=== PATIENT | female | born 1965 | race Caucasian/White ===

== ENCOUNTER 2017-02-26 17:27 | Emergency (ER) | payer MEDICAID ==
[~2017-02-26] VITALS: Ht 162.6 cm; Wt 76.2 kg
[~2017-02-26 17:27] MED LIST: ALBU6.7H INH; ALBU8.5H5 INH; ALEN10TA6 PO; ALLO300T PO; AMLO5TAB2 PO; ASPI-621 PO; ASPI500T10 PO; ATOR20TA9 PO; ATOR40TA78 PO; BACL-19 PO; CALC-570 PO; CEFU250T PO; CHOL20002 PO; CLIN300C93 PO; DULO60CA7 PO; ESOM40CA PO; FENO160T PO; FENO200C PO; FERR325T35 PO; FLUT10SP NAS; FLUT1DIS5 IH; GABA300C10 PO; GEMF600T PO; GEMF600T3 PO; HYDR-3138 PO; HYDR-3144 PO; HYDR-3341 PO; INSU100C5 SQ-INSULIN; INSU100V13 SC; INSU100V13 SQ-INSULIN; INSU100V14 SQ-INSULIN; IPRA0.2S35 INH; IPRA3AMP NPPB; LEVO200T5 PO; LIPA1CAP45 PO; LOVA10TA PO; METF10002 PO; METH1TAB40 PO; METR500T PO; MONT10TA9 PO; OMEP-110 PO; ONDA8TAB12 PO; PANT40TA3 PO; PRED10TA PO; PRED20TA PO; PRED50TA PO; PRED5TAB PO; PREG300C PO; RANI150T4 PO; TIOT18CA INH; TIZA2CAP PO; VANC1VIA3 PO
[2017-02-26 17:35] VITALS: BP 127/71
[2017-02-26] MEDS ORDERED: KETOROLAC 30 MG/1 ML IM ONE (18:30)
[2017-02-26] MEDS ORDERED: KETOROLAC 30 MG/1 ML ONE (19:00)
== END 2017-02-26 19:14 | disposition home or self-care (01) ==
LOC: ED 18:57
DX: S46.012A Strain of muscle(s) and tendon(s) of the rotator cuff of left shoulder, initial encounter (principal); J44.9 Chronic obstructive pulmonary disease, unspecified; I10 Essential (primary) hypertension; L93.0 Discoid lupus erythematosus; E11.65 Type 2 diabetes mellitus with hyperglycemia; I25.2 Old myocardial infarction; X50.9XXA Other and unspecified overexertion or strenuous movements or postures, initial encounter; Y93.89 Activity, other specified; Y92.89 Other specified places as the place of occurrence of the external cause; Y99.8 Other external cause status
CPT/HCPCS: 73030; 96372; 99284; J1885

== ENCOUNTER → 2017-08-24 | Outpatient (CLI) | payer MEDICAID ==
[~2017-08-24] MED LIST changes: +CLIN300C8 PO; -CLIN300C93 PO; +FENTANYL PF 100 MCG/2ML ONE; +FERR-46 PO; -FERR325T35 PO; -HYDR-3138 PO; -HYDR-3144 PO; +HYDR-3237 PO; +HYDR-3245 PO; +MIDAZOLAM 1 MG/ML, 5ML ONE
== END | disposition home or self-care (01) ==
LOC: RAD 07:28
PROVIDERS: ATTEND Genetic Counselor, MS
DX: M48.061 Spinal stenosis, lumbar region without neurogenic claudication (principal); M51.26 Other intervertebral disc displacement, lumbar region; M71.38 Other bursal cyst, other site
CPT/HCPCS: 72148; 99156; 99157; J2250; J3010

== ENCOUNTER → 2017-09-29 | Outpatient (CLI) | payer MEDICAID ==
[~2017-09-29] MED LIST changes: +FLUMAZENIL 0.1 MG/1 ML, 5ML ONE; +NALOXONE 1 MG/ML, 2ML ONE
== END | disposition home or self-care (01) ==
LOC: RAD 07:01
PROVIDERS: ATTEND Orthopaedic Surgery
DX: M48.062 Spinal stenosis, lumbar region with neurogenic claudication (principal); M51.26 Other intervertebral disc displacement, lumbar region; M71.38 Other bursal cyst, other site; M25.78 Osteophyte, vertebrae; E78.00 Pure hypercholesterolemia, unspecified; F31.9 Bipolar disorder, unspecified; J45.909 Unspecified asthma, uncomplicated; F41.9 Anxiety disorder, unspecified; M81.0 Age-related osteoporosis without current pathological fracture; M19.90 Unspecified osteoarthritis, unspecified site; J43.9 Emphysema, unspecified
CPT/HCPCS: 72148; 99156; J2250; J3010; J2310

== ENCOUNTER 2017-11-23 16:20 | Emergency (ER) | payer MEDICAID ==
[~2017-11-23] VITALS: Ht 162.6 cm; Wt 69.9 kg
[2017-11-23 17:05] VITALS: BP 182/91
== END 2017-11-23 18:27 | disposition home or self-care (01) ==
LOC: ED 18:00
DX: M70.21 Olecranon bursitis, right elbow (principal); M77.9 Enthesopathy, unspecified; I10 Essential (primary) hypertension; E11.9 Type 2 diabetes mellitus without complications
CPT/HCPCS: 99284

== ENCOUNTER → 2017-11-23 | Outpatient (CLI) | payer MEDICAID ==
[~2017-11-23] MED LIST changes: -FENTANYL PF 100 MCG/2ML ONE; -FLUMAZENIL 0.1 MG/1 ML, 5ML ONE; -MIDAZOLAM 1 MG/ML, 5ML ONE; -NALOXONE 1 MG/ML, 2ML ONE
== END ==
LOC: RAD 15:38
PROVIDERS: ATTEND Physician Assistant Surgical
DX: M51.36 Other intervertebral disc degeneration, lumbar region (principal); M96.1 Postlaminectomy syndrome, not elsewhere classified
CPT/HCPCS: 72100

== ENCOUNTER → 2018-01-02 | Outpatient (CLI) | payer MEDICAID | END | disposition home or self-care (01) | LOC: RAD 12:42 | PROVIDERS: ATTEND Physician Assistant Surgical | DX: M47.896 Other spondylosis, lumbar region (principal); M96.1 Postlaminectomy syndrome, not elsewhere classified; Z98.890 Other specified postprocedural states | CPT/HCPCS: 72100 ==

== ENCOUNTER → 2018-01-29 | Outpatient (CLI) | payer MEDICAID ==
[~2018-01-29] MED LIST changes: +CETI10CA PO; +DIPH25CA61 PO; +FERR325T18 PO; +FLUD0.1T PO; +HYDR50TA13 PO; +INSU200I4 SC; +ISOS10TA2 PO; +LEVO125T5 PO; +METH750T2 PO; +OMEG-123 PEG; +PRAM1TAB5 PO; +SUCR1TAB PO; +TIZA4TAB PO; +[UNRECOGNIZED DRUG - OTHER] SC
[2018-01-29 14:31] LABS: ANION GAP 5 mmol/L (5-15); CALCIUM 9.4 mg/dL (8.5-10.1); CHLORIDE 111 mmol/L (98-107)
[2018-01-29 14:34] LABS: ALANINE AMINOTRANSFERASE 15 U/L (12-78); ALKALINE PHOSPHATASE 77 U/L (45-117); BILIRUBIN,TOTAL 0.4 mg/dL (0.2-1.0); CREATININE 0.78 mg/dL (0.55-1.02); TOTAL PROTEIN 7.6 g/dL (6.4-8.2)
== END | disposition home or self-care (01) ==
LOC: STAR 13:00
PROVIDERS: ATTEND Obstetrics & Gynecology Female Pelvic Medicine and Reconstructive Surgery
DX: Z01.818 Encounter for other preprocedural examination (principal); N81.2 Incomplete uterovaginal prolapse; R10.2 Pelvic and perineal pain; N94.10 Unspecified dyspareunia
CPT/HCPCS: 36415; 80053; 93005

== ENCOUNTER 2018-02-05 11:59 | Day surgery (SDC) | payer MEDICAID ==
[~2018-02-05] VITALS: Ht 162.6 cm; Wt 63.6 kg
[~2018-02-05 11:59] MED LIST changes: +BUPIVACAINE/PF 0.25% ONE; +EPINEPHRINE 1 MG/ML, 1ML ONE; +NEOMY/POLYMYXIN B GU IRR. 1 ML IRRIG ONE; +PROPOFOL 10 MG/ML, 20ML ONE; +SUGAMMADEX 200 MG/2 ML IVPush ONE
[2018-02-05 13:18] VITALS: BP 83/39
[2018-02-05] MEDS ORDERED: LACTATED RINGERS 1,000 ML IV SCH (13:50)
[2018-02-05] MEDS ORDERED: FENTANYL PF 100 MCG/2ML ONE ×2 (16:51→19:39)
[2018-02-05] MEDS ORDERED: NEOSTIGMINE 1 MG/ML, 10ML ONE (19:10)
[2018-02-05] MEDS ORDERED: CEFAZOLIN 1,000 MG ONE (19:10)
[2018-02-05] MEDS ORDERED: DEXAMETHASONE 4 MG/ML, 1ML ONE (19:10)
[2018-02-05] MEDS ORDERED: SUCCINYLCHOLINE 20 MG/ML, 10ML ONE (19:10)
[2018-02-05] MEDS ORDERED: GLYCOPYRROLATE 0.2MG/1ML, 5ML ONE (19:10)
[2018-02-05] MEDS ORDERED: PROPOFOL 10 MG/ML, 20ML ONE (19:10)
[2018-02-05] MEDS ORDERED: ONDANSETRON 2MG/ML, 2ML ONE (19:10)
[2018-02-05] MEDS ORDERED: ROCURONIUM 10 MG/ML,10ML ONE (19:10)
[2018-02-05] MEDS ORDERED: ACETAMINOPHEN 325 MG TABLET PO PRN (19:30)
[2018-02-05] MEDS ORDERED: PROMETHAZINE 12.5 MG SUPP PR PRN (19:30)
[2018-02-05] MEDS ORDERED: MIDAZOLAM 1 MG/ML, 2ML IV PRN (19:30)
[2018-02-05] MEDS ORDERED: ONDANSETRON 2MG/ML, 2ML IVPush PRN (19:30)
[2018-02-05] MEDS ORDERED: PROMETHAZINE 25 MG/ML, 1ML IV PRN (19:30)
[2018-02-05] MEDS ORDERED: DIAZEPAM 5 MG/ML, 2ML IVPush PRN (19:30)
[2018-02-05] MEDS ORDERED: ALBUTEROL SULFATE 2.5 MG/3 ML NPPB PRN (19:30)
[2018-02-05] MEDS ORDERED: LORazepam 2 MG/ML, 1ML IVPush PRN (19:30)
[2018-02-05] MEDS ORDERED: hydrALAzine 20 MG/ML, 1ML IV PRN (19:30)
[2018-02-05] MEDS ORDERED: OXYcodone 5 MG/5 ML ORAL.SOL UDC PO PRN (19:30)
[2018-02-05] MEDS ORDERED: MEPERIDINE/PF 25MG/0.5ML IVPush PRN (19:30)
[2018-02-05] MEDS ORDERED: METOCLOPRAMIDE 5 MG/ML, 2ML IV PRN (19:30)
[2018-02-05] MEDS ORDERED: LABETALOL 5MG/ML, 20ML IV PRN (19:30)
[2018-02-05] MEDS ORDERED: ALBUTEROL/IPRATROPIUM 2.5MG/0.5MG, 3 ML NPPB PRN (19:30)
[2018-02-05] MEDS ORDERED: hydrALAzine 20 MG/ML, 1ML ONE (19:39)
[2018-02-05] MEDS: FENTANYL PF 100 MCG/2ML IV PRN ×2 (19:40→20:03)
[2018-02-05] MEDS ORDERED: OXYcodone 5 MG/5 ML ORAL.SOL UDC ONE (19:40)
[2018-02-05] MEDS ORDERED: OXYcodone/APAP 5/325MG TABLET PO PRN (21:30)
[2018-02-05] MEDS ORDERED: HYDROcodone/APAP 5/325 TABLET PO PRN (21:30)
[2018-02-05] MEDS ORDERED: KETOROLAC 30 MG/1 ML IV PRN (21:30)
[2018-02-05] MEDS ORDERED: HYDROmorphone 1 MG/ML, 1ML IV PRN (21:30)
[2018-02-05] MEDS ORDERED: IBUPROFEN 600 MG TABLET PO PRN (21:30)
[2018-02-05] MEDS ORDERED: ONDANSETRON 4 MG TABLET PO PRN (21:30)
== END 2018-02-05 23:31 | disposition home or self-care (01) ==
LOC: OUT 11:59 → 4NOR 20:50 → OUT 23:31
PROVIDERS: ATTEND Obstetrics & Gynecology Female Pelvic Medicine and Reconstructive Surgery
DX: N81.4 Uterovaginal prolapse, unspecified (principal); N80.3 Endometriosis of pelvic peritoneum; N81.89 Other female genital prolapse; N39.46 Mixed incontinence; N94.10 Unspecified dyspareunia; J44.9 Chronic obstructive pulmonary disease, unspecified; E03.9 Hypothyroidism, unspecified; E11.40 Type 2 diabetes mellitus with diabetic neuropathy, unspecified; Z86.14 Personal history of Methicillin resistant Staphylococcus aureus infection; Z87.39 Personal history of other diseases of the musculoskeletal system and connective tissue; Z98.890 Other specified postprocedural states; Z88.6 Allergy status to analgesic agent; Z88.1 Allergy status to other antibiotic agents; Z88.8 Allergy status to other drugs, medicaments and biological substances
CPT/HCPCS: 57265; 57282; 57288; 58552; 82962; 88307; 88311; C1771; J0171; J0360; J0690; J1100; J1885; J2405; J2704; J2710; J3010; J3490; J0330

== ENCOUNTER → 2018-04-03 | Outpatient (CLI) | payer MEDICAID ==
[~2018-04-03] MED LIST changes: -BUPIVACAINE/PF 0.25% ONE; -EPINEPHRINE 1 MG/ML, 1ML ONE; -NEOMY/POLYMYXIN B GU IRR. 1 ML IRRIG ONE; -PROPOFOL 10 MG/ML, 20ML ONE; -SUGAMMADEX 200 MG/2 ML IVPush ONE
== END | disposition home or self-care (01) ==
LOC: RAD 09:00
PROVIDERS: ATTEND Physician Assistant Surgical
DX: M51.36 Other intervertebral disc degeneration, lumbar region (principal); M96.1 Postlaminectomy syndrome, not elsewhere classified
CPT/HCPCS: 72100

== ENCOUNTER 2018-10-28 17:32 | Emergency (ER) | payer MEDICAID ==
[~2018-10-28] VITALS: Ht 162.6 cm; Wt 70.0 kg
[~2018-10-28 17:32] MED LIST changes: +AMLO-150 PO; -AMLO5TAB2 PO; -ASPI-621 PO; +ASPI81TA45 PO; +ATOR20TA37 PO; -ATOR20TA9 PO; -CHOL20002 PO; +CHOL200085 PO; -GEMF600T3 PO; +GEMF600T4 PO; -IPRA3AMP NPPB; +IPRA3AMP30 NPPB
[2018-10-28 17:37] VITALS: BP 148/80
[2018-10-28] MEDS ORDERED: HYDROcodone/APAP 5/325 TABLET PO ONE (18:00)
[2018-10-28] MEDS ORDERED: HYDROcodone/APAP 5/325 TABLET ONE (18:07)
== END 2018-10-28 19:03 | disposition home or self-care (01) ==
LOC: ED 18:57 → MERGE 18:57 → ED 19:03
DX: S90.31XA Contusion of right foot, initial encounter (principal); J44.9 Chronic obstructive pulmonary disease, unspecified; E11.9 Type 2 diabetes mellitus without complications; Z88.0 Allergy status to penicillin; Z88.1 Allergy status to other antibiotic agents; Z88.2 Allergy status to sulfonamides; Z91.040 Latex allergy status; X58.XXXA Exposure to other specified factors, initial encounter; Y93.89 Activity, other specified; Y92.89 Other specified places as the place of occurrence of the external cause; Y99.8 Other external cause status
CPT/HCPCS: 99283

== ENCOUNTER 2019-11-11 22:38 | Inpatient (IN) | payer MEDICAID ==
[~2019-11-11] VITALS: Ht 162.6 cm; Wt 70.1 kg
[~2019-11-11 22:38] MED LIST changes: -ALBU6.7H INH; +ALBU6.7H8 INH; -ALEN10TA6 PO; +ALEN10TA7 PO; +CHOL20002 PO; -CHOL200085 PO; -GEMF600T4 PO; +GEMF600T8 PO; -TIZA4TAB PO; +TIZA4TAB2 PO
--- NOTE | 2019-11-11 22:45 | NUR ---
BLOOD GLUCOSE IN TRAIGE: 364
[2019-11-11] MEDS ORDERED: SODIUM CHLORIDE FLUSH 10ML SYR IVF ONE (23:00)
[2019-11-11] MEDS ORDERED: SODIUM CHLORIDE 0.9% 1,000ML IVBOLUS ONE (23:00)
[2019-11-11 23:06] LABS: BASOPHILS # (AUTO) 0.05 x10^3/uL (0-0.1); BASOPHILS % (AUTO) 0 % (0-1); EOSINOPHILS # (AUTO) 0.42 x10^3/uL (0-0.4); EOSINOPHILS % (AUTO) 3 % (1-7); LYMPHOCYTES # (AUTO) 2.19 x10^3/uL (1-3.4); LYMPHOCYTES % (AUTO) 15 % (22-44); MD NO; MEAN CORPUSCULAR HEMOGLOBIN 28.4 pg (27.0-34.8); MEAN CORPUSCULAR VOLUME 83.6 fL (80-100); MEAN PLATELET VOLUME 9.4 fL (7.4-10.4); MONOCYTES # (AUTO) 0.75 x10^3/uL (0.2-0.8); MONOCYTES % (AUTO) 5 % (2-9); NEUTROPHILS # (AUTO) 11.16 x10^3/uL (1.8-6.8); NEUTROPHILS % (AUTO) 77 % (42-75); PLATELET COUNT 386 x10^3/uL (130-400); RED BLOOD COUNT 4.23 x10^6/uL (3.82-5.3); RED CELL DISTRIBUTION WIDTH 13.2 % (9.6-15.2)
[2019-11-11 23:19] LABS: ALANINE AMINOTRANSFERASE 34 U/L (12-78); ALBUMIN 3.6 g/dL (3.4-5.0); ANION GAP 9 mmol/L (5-15); CALCIUM 8.7 mg/dL (8.5-10.1); CHLORIDE 108 mmol/L (98-107); CREATININE 1.17 mg/dL (0.55-1.02)
[2019-11-11 23:22] LABS: ALKALINE PHOSPHATASE 90 U/L (45-117); BILIRUBIN,TOTAL 0.3 mg/dL (0.2-1.0); TOTAL PROTEIN 6.8 g/dL (6.4-8.2); TROPONIN I < 0.015 ng/mL (0.000-0.045)
--- NOTE | 2019-11-12 00:59 | NUR ---
BEDSIDE REPORT RECEIVED FROM ARIN SOW. PT RESTING QUIETLY, C/O LOWER ABD PAIN 710 X 2 DAYS. IV 1L INFUSED, VS NOTED. PROVIDER NOTIFIED.
--- NOTE | 2019-11-12 02:30 | NUR ---
DR ANDRADE IN TO EVALUATE FOR ADMIT. PT CONTINUES TO HAVE SMALL AMT OF CONTINUOUS LIQUID STOOL OUTPUT. PT CLEANED; DR ANDRADE NOTIFIED AND FECAL MANAGEMENT ORDERED. PT OTHERWISE CONTINUES RESTING QUIETLY.
[2019-11-12] MEDS ORDERED: SODIUM CHLORIDE 0.9% 1,000ML IVBOLUS ONE (03:00)
[2019-11-12 03:28] LABS: FREE T4 (FREE THYROXINE) 1.13 ng/dL (0.76-1.46)
[2019-11-12] MEDS ORDERED: ONDANSETRON 2MG/ML, 2ML IVPush PRN (03:30)
[2019-11-12] MEDS ORDERED: ALBUTEROL/IPRATROPIUM 2.5MG/0.5MG, 3 ML HHN PRN (03:30)
--- NOTE | 2019-11-12 04:01 | NUR ---
2ND LITER NS INFUSED, VS UNCHANGED NOTED. PT SLEEPING AT THIS TIME. LABS REVIEWED. WILL CONTINUE TO MONITOR.
[2019-11-12] MEDS: SODIUM CHLORIDE 0.9% 1,000 ML IV SCH ×3 (06:25→20:57)
[2019-11-12] MEDS ORDERED: GABAPENTIN 300 MG CAPSULE ONE (06:28)
[2019-11-12 06:29] LABS: TROPONIN I < 0.015 ng/mL (0.000-0.045)
[2019-11-12] MEDS: GABAPENTIN 300 MG CAPSULE PO SCH ×4 (06:34→20:54)
[2019-11-12] MEDS: LEVOTHYROXINE 125 MCG TABLET PO SCH (06:34)
[2019-11-12] MEDS: INSULIN LISPRO 100 UNITS/ML, PEN SQ-INSULIN SCH ×4 (07:00→20:55)
--- NOTE | 2019-11-12 07:00 | NUR ---
RECEIVED REPORT FROM ERNESTO. PT LAYING ON GURNEY SLEEPING COMFORTABLY, RESPONDS APPROP TO STAFF, NAD, COMFORT MEASURES PROVIDED, CALL LIGHT WITHIN REACH, ISO PREC REMAIN IN PLACE- AWAITING SUFFICIENT AMT OF STOOL FOR SAMPLE.
[2019-11-12 07:09] LABS: MICROSCOPIC INDICATED
[2019-11-12 07:10] LABS: CULTURE INDICATED? YES
--- NOTE | 2019-11-12 07:54 | NUR ---
Pt to be admitted to [facility], room 424. Report called to Jasen.
[2019-11-12] MEDS: ALLOPURINOL 300 MG TABLET PO SCH (09:30)
[2019-11-12] MEDS: FERROUS SULFATE 325 MG TABLET PO SCH (09:30)
[2019-11-12] MEDS ORDERED: IPRATROPIUM 0.5 MG/2.5 ML INHA NEB PRN (10:00)
[2019-11-12] MEDS: PROTEASE PO SCH ×3 (11:00→21:00)
[2019-11-12] MEDS: AMYLASE PO SCH ×3 (11:00→21:00)
[2019-11-12] MEDS: LIPASE PO SCH ×3 (11:00→21:00)
[2019-11-12] MEDS: [UNRECOGNIZED DRUG - OTHER] PO SCH ×3 (11:00→21:00)
[2019-11-12 11:57] VITALS: BP 135/52
[2019-11-12] MEDS: FLUDROCORTISONE 0.1 MG TABLET PO SCH ×2 (12:01→20:54)
[2019-11-12] MEDS: DULOXETINE 30 MG CAPSULE.DR PO SCH (12:01)
[2019-11-12 14:31] VITALS: BP 161/66
[2019-11-12 18:42] LABS: CLOSTRIDIUM DIFFICILE ANTIGEN NEGATIVE; CLOSTRIDIUM DIFFICILE TOXIN NEGATIVE (Negative)
[2019-11-12] MEDS ORDERED: IMMUNE GLOBULIN SQ ONE (20:00)
[2019-11-12] MEDS: FENOFIBRATE 145 MG TABLET PO SCH (20:54)
[2019-11-12] MEDS: MONTELUKAST 10 MG TABLET PO SCH (20:54)
[2019-11-12] MEDS: ATORVASTATIN 40 MG TABLET PO SCH (20:54)
[2019-11-12 21:24] VITALS: BP 165/80
[2019-11-12] MEDS: ACETAMINOPHEN 325 MG TABLET PO PRN (21:55)
[2019-11-13 02:00] VITALS: BP 141/73
[2019-11-13] MEDS: SODIUM CHLORIDE 0.9% 1,000 ML IV SCH ×2 (04:45→10:24)
[2019-11-13] MEDS: LEVOTHYROXINE 125 MCG TABLET PO SCH (05:05)
[2019-11-13] MEDS: GABAPENTIN 300 MG CAPSULE PO SCH ×4 (05:05→20:31)
[2019-11-13] MEDS: ACETAMINOPHEN 325 MG TABLET PO PRN (05:06)
[2019-11-13] MEDS: PROTEASE PO SCH ×4 (07:00→20:30)
[2019-11-13] MEDS: [UNRECOGNIZED DRUG - OTHER] PO SCH ×4 (07:00→20:30)
[2019-11-13] MEDS: AMYLASE PO SCH ×4 (07:00→20:30)
[2019-11-13] MEDS: LIPASE PO SCH ×4 (07:00→20:30)
[2019-11-13 07:12] LABS: BASOPHILS # (AUTO) 0.06 x10^3/uL (0-0.1); BASOPHILS % (AUTO) 1 % (0-1); EOSINOPHILS # (AUTO) 0.34 x10^3/uL (0-0.4); EOSINOPHILS % (AUTO) 4 % (1-7); LYMPHOCYTES % (AUTO) 20 % (22-44); MD NO; MEAN CORPUSCULAR HEMOGLOBIN 28.5 pg (27.0-34.8); MEAN CORPUSCULAR HGB CONC 33.5 g/dL (32.4-35.8); MEAN CORPUSCULAR VOLUME 85.1 fL (80-100); MEAN PLATELET VOLUME 9.5 fL (7.4-10.4); MONOCYTES # (AUTO) 0.46 x10^3/uL (0.2-0.8); MONOCYTES % (AUTO) 5 % (2-9); NEUTROPHILS # (AUTO) 6.05 x10^3/uL (1.8-6.8); NEUTROPHILS % (AUTO) 70 % (42-75); PLATELET COUNT 368 x10^3/uL (130-400); RED BLOOD COUNT 4.45 x10^6/uL (3.82-5.3); RED CELL DISTRIBUTION WIDTH 13.3 % (9.6-15.2)
[2019-11-13 07:20] LABS: CHLORIDE 106 mmol/L (98-107)
[2019-11-13 07:31] LABS: ALANINE AMINOTRANSFERASE 31 U/L (12-78); ALBUMIN 3.5 g/dL (3.4-5.0); ALKALINE PHOSPHATASE 80 U/L (45-117); ANION GAP 7 mmol/L (5-15); BILIRUBIN,TOTAL 0.6 mg/dL (0.2-1.0); CALCIUM 8.6 mg/dL (8.5-10.1); CREATININE 0.52 mg/dL (0.55-1.02); TOTAL PROTEIN 6.8 g/dL (6.4-8.2)
[2019-11-13] MEDS ORDERED: POTASSIUM CHLORIDE 20 MEQ TAB.ER.PRT PO ONE ×2 (08:30→11:30)
[2019-11-13 10:07] VITALS: BP 149/72
[2019-11-13] MEDS: INSULIN LISPRO 100 UNITS/ML, PEN SQ-INSULIN SCH ×4 (10:17→20:33)
[2019-11-13] MEDS: DULOXETINE 30 MG CAPSULE.DR PO SCH (10:18)
[2019-11-13] MEDS: FLUDROCORTISONE 0.1 MG TABLET PO SCH ×2 (10:18→20:32)
[2019-11-13] MEDS: ALLOPURINOL 300 MG TABLET PO SCH (10:18)
[2019-11-13] MEDS: FERROUS SULFATE 325 MG TABLET PO SCH (10:19)
[2019-11-13] MEDS: ACETAMINOPHEN 325 MG TABLET PO SCH ×3 (12:54→20:31)
[2019-11-13] MEDS: LIDODERM 5% PATCH TD SCH (13:34)
[2019-11-13 15:00] VITALS: BP 161/78
[2019-11-13 16:19] VITALS: BP 157/77
[2019-11-13 20:03] VITALS: BP 150/81
[2019-11-13] MEDS: FENOFIBRATE 145 MG TABLET PO SCH (20:32)
[2019-11-13] MEDS: ATORVASTATIN 40 MG TABLET PO SCH (20:32)
[2019-11-13] MEDS: MONTELUKAST 10 MG TABLET PO SCH (20:32)
[2019-11-14 01:19] VITALS: BP 121/65
[2019-11-14] MEDS: ACETAMINOPHEN 325 MG TABLET PO SCH ×2 (06:08→12:07)
[2019-11-14] MEDS: GABAPENTIN 300 MG CAPSULE PO SCH ×2 (06:08→12:07)
[2019-11-14] MEDS: LEVOTHYROXINE 125 MCG TABLET PO SCH (06:08)
[2019-11-14] MEDS: AMYLASE PO SCH ×2 (07:00→11:00)
[2019-11-14] MEDS: PROTEASE PO SCH ×2 (07:00→11:00)
[2019-11-14] MEDS: [UNRECOGNIZED DRUG - OTHER] PO SCH ×2 (07:00→11:00)
[2019-11-14] MEDS: LIPASE PO SCH ×2 (07:00→11:00)
[2019-11-14 09:10] VITALS: BP 136/79
[2019-11-14] MEDS: INSULIN LISPRO 100 UNITS/ML, PEN SQ-INSULIN SCH ×2 (09:11→12:08)
[2019-11-14] MEDS: FERROUS SULFATE 325 MG TABLET PO SCH (09:11)
[2019-11-14] MEDS: DULOXETINE 30 MG CAPSULE.DR PO SCH (09:11)
[2019-11-14] MEDS: ALLOPURINOL 300 MG TABLET PO SCH (09:12)
[2019-11-14] MEDS: FLUDROCORTISONE 0.1 MG TABLET PO SCH (09:12)
[2019-11-14] MEDS ORDERED: LIDO700A20 TD (11:15)
[2019-11-14] MEDS: LIDODERM 5% PATCH TD SCH (12:07)
[2019-11-14 13:30] VITALS: BP 151/68
== END 2019-11-14 15:46 | disposition home or self-care (01) | DRG 207 ==
LOC: ED 11-12 03:09 → EDIP 11-12 03:11 → 4WST 11-12 07:54
PROVIDERS: ADMIT Internal Medicine; ATTEND Hospitalist
DX: I95.2 Hypotension due to drugs (principal); E11.40 Type 2 diabetes mellitus with diabetic neuropathy, unspecified; E27.1 Primary adrenocortical insufficiency; E78.5 Hyperlipidemia, unspecified; E89.0 Postprocedural hypothyroidism; I10 Essential (primary) hypertension; J44.9 Chronic obstructive pulmonary disease, unspecified; J98.11 Atelectasis; K50.90 Crohn's disease, unspecified, without complications; M79.7 Fibromyalgia; N28.9 Disorder of kidney and ureter, unspecified; G56.00 Carpal tunnel syndrome, unspecified upper limb; M19.90 Unspecified osteoarthritis, unspecified site; I25.2 Old myocardial infarction; Z79.899 Other long term (current) drug therapy; Z85.038 Personal history of other malignant neoplasm of large intestine
CPT/HCPCS: 36415; 71045; 80053; 81001; 82533; 82962; 83605; 83880; 84145; 84439; 84443; 84484; 85025; 87077; 87086; 87186; 87324; 93005; 93306; 99285; G0378; J1815; J7030

== ENCOUNTER 2019-12-03 15:45 | Emergency (ER) | payer MEDICAID ==
[~2019-12-03] VITALS: Ht 162.6 cm; Wt 74.5 kg
[~2019-12-03 15:45] MED LIST changes: +LIDO700A20 TD
--- NOTE | 2019-12-03 16:26 | NUR ---
BIB EMS FOR C/O BS BEING IN THE 497 AT HOME. PT GAVE HERSELF 40 UNITS NOVOLOG AT 0700 AND THEN ANOTHER 40 UNITS NOVOLOG AT 1100. PT STATES SHE WENT TO FOR LOW BP SBP 70'S. 911 CALLED AT . BS BY EMS 95. FELT LIGHTHEADED/DIZZY. 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 RUI BELTRAN AT BEDSIDE FOR REVAL. MADE AWARE OF PT CURRENT BS AND 80 UNITS NOVOLOG TAKEN AT HOME. WILL CONTINUE TO MONITOR BP AND BS. IVF INITIATED. PER RUI ACUÑA FOR PT TO HAVE PO FLUIDS. PT PROVIDED W/ MULTIPLE ORANGE JUICES AND WATER.
[2019-12-03] MEDS ORDERED: SODIUM CHLORIDE 0.9% 1,000ML IVBOLUS ONE (16:30)
[2019-12-03] MEDS ORDERED: SODIUM CHLORIDE FLUSH 10ML SYR IVF ONE (16:30)
[2019-12-03 17:00] LABS: BASOPHILS # (AUTO) 0.03 x10^3/uL (0-0.1); BASOPHILS % (AUTO) 0 % (0-1); EOSINOPHILS # (AUTO) 0.72 x10^3/uL (0-0.4); EOSINOPHILS % (AUTO) 8 % (1-7); LYMPHOCYTES # (AUTO) 2.38 x10^3/uL (1-3.4); LYMPHOCYTES % (AUTO) 27 % (22-44); MD NO; MEAN CORPUSCULAR HEMOGLOBIN 28.5 pg (27.0-34.8); MEAN CORPUSCULAR HGB CONC 32.8 g/dL (32.4-35.8); MEAN CORPUSCULAR VOLUME 86.8 fL (80-100); MEAN PLATELET VOLUME 9.5 fL (7.4-10.4); MONOCYTES # (AUTO) 0.57 x10^3/uL (0.2-0.8); MONOCYTES % (AUTO) 6 % (2-9); NEUTROPHILS # (AUTO) 5.24 x10^3/uL (1.8-6.8); NEUTROPHILS % (AUTO) 59 % (42-75); PLATELET COUNT 351 x10^3/uL (130-400); RED BLOOD COUNT 4.35 x10^6/uL (3.82-5.3); RED CELL DISTRIBUTION WIDTH 14.1 % (9.6-15.2)
[2019-12-03 17:05] LABS: ACETONE, SERUM Negative (Negative); ALANINE AMINOTRANSFERASE 22 U/L (12-78); ALBUMIN 3.8 g/dL (3.4-5.0); ANION GAP 8 mmol/L (5-15); CALCIUM 9.3 mg/dL (8.5-10.1); CHLORIDE 109 mmol/L (98-107)
[2019-12-03 17:08] LABS: ALKALINE PHOSPHATASE 77 U/L (45-117); BILIRUBIN,TOTAL 0.2 mg/dL (0.2-1.0); CREATININE 0.88 mg/dL (0.55-1.02)
--- NOTE | 2019-12-03 17:10 | NUR ---
PT RESTING ON GURNEY. NADN. OSORIO.
[2019-12-03 17:33] LABS: MICROSCOPIC NOT IND
[2019-12-03 17:39] LABS: CULTURE INDICATED? NO
--- NOTE | 2019-12-03 17:53 | NUR ---
PT CHART REVIEWED AND PLACED FOR RECHECK.
[2019-12-03 18:00] VITALS: BP 140/53
--- NOTE | 2019-12-03 18:00 | NUR ---
PT RESTING ON GURNEY. NADN. OSORIO.
== END 2019-12-03 18:41 | disposition home or self-care (01) ==
LOC: ED 18:35
DX: I95.2 Hypotension due to drugs (principal); E10.65 Type 1 diabetes mellitus with hyperglycemia; E10.10 Type 1 diabetes mellitus with ketoacidosis without coma; E78.5 Hyperlipidemia, unspecified; I10 Essential (primary) hypertension; I25.2 Old myocardial infarction; J44.9 Chronic obstructive pulmonary disease, unspecified
CPT/HCPCS: 36415; 80053; 81003; 82010; 82962; 83605; 85025; 87040; 93005; 96360; 99284; J7030

== ENCOUNTER → 2020-01-13 | Outpatient (CLI) | payer MEDICAID ==
[~2020-01-13] MED LIST changes: +ALEN10TA10 PO; -ALEN10TA7 PO; -HYDR50TA13 PO; +HYDR50TA99 PO; +MONT10TA11 PO; -MONT10TA9 PO
== END | disposition home or self-care (01) ==
LOC: CFH 08:21
PROVIDERS: ATTEND Physician Assistant Medical
DX: I21.19 ST elevation (STEMI) myocardial infarction involving other coronary artery of inferior wall (principal); I21.29 ST elevation (STEMI) myocardial infarction involving other sites; I25.9 Chronic ischemic heart disease, unspecified; I20.9 Angina pectoris, unspecified
CPT/HCPCS: 78452; 93017; A9502

== ENCOUNTER 2020-02-11 17:17 | Emergency (ER) | payer MEDICAID ==
[~2020-02-11] VITALS: Ht 162.6 cm; Wt 69.3 kg
--- NOTE | 2020-02-11 17:45 | NUR ---
"I'VE BEEN SICK SINCE NOVEMBER WITH MY COPD BEING WORSE." "MY STOMACH IS VERY TENDER, MY RIBS HURT, I STILL HAVE A COUGH" UNINTENTIONAL 35LB WEIGHT LOSS SINCE NOVEMBER INTERMITTENT CHILLS, MUSCLE ACHES SEEN AT PRIOR TO ARRIVAL WHERE SHE WAS TESTED FOR STREP-NEGATIVE, FLU-NEGATIVE, COVID SENT OUT ALSO WITH BILATERAL EAR PAIN NO TRAVEL, FAMILY WITH SIMILIAR SYMPTOMS (COUGH, HEADCHE, FEVER, CHILLS) IMMUNOCOMPROMISED-LUPUS
--- NOTE | 2020-02-11 17:49 | NUR ---
MANY ALLERGIES-CAN TAKE AMOXICILLIN
[2020-02-11 18:27] LABS: BASOPHILS # (AUTO) 0.07 x10^3/uL (0-0.1); BASOPHILS % (AUTO) 1 % (0-1); EOSINOPHILS # (AUTO) 0.64 x10^3/uL (0-0.4); EOSINOPHILS % (AUTO) 6 % (1-7); LYMPHOCYTES # (AUTO) 2.49 x10^3/uL (1-3.4); LYMPHOCYTES % (AUTO) 24 % (22-44); MD NO; MEAN CORPUSCULAR HEMOGLOBIN 29.2 pg (27.0-34.8); MEAN CORPUSCULAR HGB CONC 33.9 g/dL (32.4-35.8); MEAN CORPUSCULAR VOLUME 86.3 fL (80-100); MEAN PLATELET VOLUME 9.8 fL (7.4-10.4); MONOCYTES # (AUTO) 0.53 x10^3/uL (0.2-0.8); MONOCYTES % (AUTO) 5 % (2-9); NEUTROPHILS # (AUTO) 6.68 x10^3/uL (1.8-6.8); NEUTROPHILS % (AUTO) 64 % (42-75); PLATELET COUNT 378 x10^3/uL (130-400); RED BLOOD COUNT 4.85 x10^6/uL (3.82-5.3); RED CELL DISTRIBUTION WIDTH 13.4 % (9.6-15.2)
[2020-02-11 18:32] LABS: ALBUMIN 3.9 g/dL (3.4-5.0); ANION GAP 5 mmol/L (5-15); CALCIUM 9.6 mg/dL (8.5-10.1); CHLORIDE 109 mmol/L (98-107); CREATININE 0.73 mg/dL (0.55-1.02)
[2020-02-11 18:43] VITALS: BP 185/91
== END 2020-02-11 19:22 | disposition home or self-care (01) ==
LOC: ED 17:36
DX: R10.13 Epigastric pain (principal); R05 Cough; R50.9 Fever, unspecified; R94.31 Abnormal electrocardiogram [ECG] [EKG]; J44.9 Chronic obstructive pulmonary disease, unspecified; I25.2 Old myocardial infarction; I10 Essential (primary) hypertension; E78.5 Hyperlipidemia, unspecified; Z88.1 Allergy status to other antibiotic agents; Z88.8 Allergy status to other drugs, medicaments and biological substances; Z90.89 Acquired absence of other organs; Z88.2 Allergy status to sulfonamides; Z88.0 Allergy status to penicillin; Z91.040 Latex allergy status
CPT/HCPCS: 36415; 71045; 80048; 82040; 83615; 85025; 93005; 99285

== ENCOUNTER 2020-04-12 04:52 | Inpatient (IN) | payer MEDICAID ==
[~2020-04-12] VITALS: Ht 162.6 cm; Wt 71.1 kg
--- NOTE | 2020-04-12 05:01 | NUR ---
THIS TECH DID EKG
[2020-04-12] MEDS: PLEASE ENTER WEIGHT MC SCH ×2 (05:24→06:42)
--- NOTE | 2020-04-12 05:24 | NUR ---
BS 242 VIA GLUCOMETER
[2020-04-12] MEDS ORDERED: SODIUM CHLORIDE 0.9% 1,000ML IVBOLUS ONE ×2 (05:30→06:00)
[2020-04-12] MEDS ORDERED: SODIUM CHLORIDE FLUSH 10ML SYR IVF ONE (05:30)
[2020-04-12] MEDS ORDERED: DEXAMETHASONE 4 MG/ML, 5ML ONE (05:39)
[2020-04-12 05:43] LABS: MICROSCOPIC AUTO
[2020-04-12 05:52] LABS: BASOPHILS # (AUTO) 0.08 x10^3/uL (0-0.1); BASOPHILS % (AUTO) 1 % (0-1); EOSINOPHILS # (AUTO) 0.61 x10^3/uL (0-0.4); EOSINOPHILS % (AUTO) 7 % (1-7); LYMPHOCYTES # (AUTO) 2.48 x10^3/uL (1-3.4); LYMPHOCYTES % (AUTO) 30 % (22-44); MD NO; MEAN CORPUSCULAR HEMOGLOBIN 29.1 pg (27.0-34.8); MEAN CORPUSCULAR HGB CONC 33.6 g/dL (32.4-35.8); MEAN CORPUSCULAR VOLUME 86.5 fL (80-100); MEAN PLATELET VOLUME 9.8 fL (7.4-10.4); MONOCYTES % (AUTO) 6 % (2-9); NEUTROPHILS # (AUTO) 4.69 x10^3/uL (1.8-6.8); NEUTROPHILS % (AUTO) 56 % (42-75); PLATELET COUNT 347 x10^3/uL (130-400); RED BLOOD COUNT 4.56 x10^6/uL (3.82-5.3); RED CELL DISTRIBUTION WIDTH 13.2 % (9.6-15.2)
[2020-04-12 05:54] LABS: PH, VENOUS 7.343 pH (7.320-7.420)
[2020-04-12] MEDS ORDERED: DEXAMETHASONE 4 MG/ML, 1ML IVPush ONE (06:00)
[2020-04-12 06:02] LABS: ALBUMIN 3.6 g/dL (3.4-5.0); ANION GAP 9 mmol/L (5-15); CALCIUM 9.1 mg/dL (8.5-10.1); CHLORIDE 104 mmol/L (98-107)
--- NOTE | 2020-04-12 06:07 | NUR ---
PATIENT TAKEN TO CT VIA GURNEY WITH NURSE AND TECH, RELATED TO PATINET'S HYPOTENSION
[2020-04-12 06:13] LABS: ALANINE AMINOTRANSFERASE 29 U/L (12-78); ALKALINE PHOSPHATASE 67 U/L (45-117); BILIRUBIN,TOTAL 0.4 mg/dL (0.2-1.0); CREATININE 1.31 mg/dL (0.55-1.02); TOTAL PROTEIN 6.8 g/dL (6.4-8.2)
--- NOTE | 2020-04-12 06:14 | NUR ---
SPOKE WITH MD SAMPSON REGARDING IMPROVEMENTS IN BLOOD PRESSURE. WILL CONTINUE TO EVALUATE PATIENT.
[2020-04-12] MEDS ORDERED: CALCIUM GLUCONATE 0.46MEQ/1ML IVPush ONE (06:30)
--- NOTE | 2020-04-12 06:44 | NUR ---
SPOKE WITH MD REGARDING NO CHANGE IN BP; MD WILL ULTRASOUN PATIENT TO ENSURE PROPER FLUID RETAINMENT. MD STATED THAT PATIENT WAS VASCULARLY DRY. ADDITIONAL 1L LR TO IMPROVE BLOOD PRESSURES, AND CALCIUM GLUCONATE. PATIENT'S VITAL SIGNS HAVE IMPROVED SLIGHTLY. PATIENT REMAINS IN [place]. WILL CONTINUE TO MONITOR PATIENT.
--- NOTE | 2020-04-12 06:46 | NUR ---
MEDICATIONS ADMINISTERED. PATIEN DENIES ANY CHANGES IN SYMPTOMS
[2020-04-12 06:52] LABS: ACETONE, SERUM Negative (Negative)
[2020-04-12] MEDS ORDERED: LACTATED RINGERS 1,000 ML IVBOLUS ONE (07:00)
[2020-04-12] MEDS ORDERED: LEVOFLOXACIN/PMX 500MG/100ML 100 ML IV ONE (07:00)
--- NOTE | 2020-04-12 07:02 | NUR ---
REPORT GIVEN TO ARIN MATA
--- NOTE | 2020-04-12 07:16 | NUR ---
REPORT RECEIVED FROM KATE HINLKE. PT REMAINS ON MONITOS, HYPOTENSION NOTED. SPOKE WIH ERMBayron ABOUT POC. ERMD AWARE OF PT BP AND CONDITION. MEDS REQUESTED FROM PHARMACY,. PT REMAINS SLIGHTLY DROWSY, BUT EASY TO ROUSE, A&OX4. PT PROTECTING OWN AIRWAY WELL. CONT TO MONITOR.
[2020-04-12] MEDS ORDERED: LEVOFLOXACIN/PMX 500MG/100ML 100 ML ONE (07:35)
--- NOTE | 2020-04-12 08:10 | NUR ---
IVABX STARTED PER ORDERS. PT REMAIN ON MONITORS, BP 109/53 (MAP 70). WILL LET ERMD KNOW. PT REMAINS DROWSY BUT EASY TO ROUSE. CONT TO MONITOR.
--- NOTE | 2020-04-12 09:07 | NUR ---
REPORT GIVEN TO ANANTH HINKLE. PT OK TO TRANSFER TO FLOOR. PT AWARE OF POC.
--- NOTE | 2020-04-12 09:27 | NUR ---
PT TRANSFERED TO FLOOR. HAS ALL OWN BELONGINGS.
[2020-04-12 09:43] VITALS: BP 108/60
[2020-04-12] MEDS ORDERED: FEXO1TAB29 PO (10:03)
[2020-04-12] MEDS ORDERED: SODIUM CHLORIDE 0.9% 1,000 ML IV SCH (12:38)
[2020-04-12] MEDS ORDERED: ONDANSETRON 2MG/ML, 2ML IVPush PRN (13:00)
[2020-04-12] MEDS ORDERED: NITROGLYCERIN 0.4 MG BOTTLE (25 TABS) SL PRN (13:00)
[2020-04-12] MEDS ORDERED: LABETALOL 5MG/ML, 20ML IVPush PRN (13:00)
[2020-04-12] MEDS ORDERED: ASPIRIN 81 MG TABLET CHEW PO ONE (13:00)
[2020-04-12] MEDS ORDERED: hydrALAzine 20 MG/ML, 1ML IVPush PRN (13:00)
[2020-04-12 13:02] VITALS: BP 132/73
[2020-04-12] MEDS ORDERED: DEXTROSE 50%, 50ML SYRINGE IVPush PRN (13:30)
[2020-04-12] MEDS ORDERED: DEXTROSE 4 GM TAB.CHEW PO PRN (13:30)
[2020-04-12] MEDS ORDERED: GLUCAGON 1 MG IM PRN (13:30)
[2020-04-12] MEDS: LEVOFLOXACIN/PMX 500MG/100ML 100 ML IV SCH (13:38)
[2020-04-12] MEDS: HEPARIN 5,000 UNITS/ML, 1ML SQ SCH ×2 (13:38→20:55)
[2020-04-12 13:40] LABS: CHOLESTEROL, TOTAL 188 mg/dL (140-239); TRIGLYCERIDES 543 mg/dL (50-200)
[2020-04-12 13:43] LABS: CHOL/HDL RATIO 5.4; HDL CHOL % 19 % (28-40); HDL CHOLESTEROL (DIRECT) 35 mg/dL (40-60); TROPONIN I < 0.015 ng/mL (0.000-0.045)
[2020-04-12] MEDS ORDERED: hydrOXyzine 50MG TABLET PO SCH (16:00)
[2020-04-12 16:03] LABS: TROPONIN I < 0.015 ng/mL (0.000-0.045)
[2020-04-12] MEDS: GABAPENTIN 300 MG CAPSULE PO SCH ×2 (16:20→20:54)
[2020-04-12] MEDS: PANCRELIPASE 5000 CAPSULE.DR PO SCH ×2 (16:21→20:53)
[2020-04-12] MEDS: INSULIN LISPRO 100 UNITS/ML, PEN SQ-INSULIN SCH ×2 (17:00→21:04)
[2020-04-12 19:35] VITALS: BP 137/68
[2020-04-12 19:38] VITALS: BP 151/75
[2020-04-12 19:40] VITALS: BP 134/74
[2020-04-12] MEDS: hydrOXyzine 50MG TABLET PO SCH (20:53)
[2020-04-12] MEDS: FENOFIBRATE 145 MG TABLET PO SCH (20:54)
[2020-04-12] MEDS: CALCIUM CARBONATE 500 MG TABLET PO SCH (20:54)
[2020-04-12] MEDS: ATORVASTATIN 40 MG TABLET PO SCH (20:55)
[2020-04-12] MEDS: SODIUM CHLORIDE FLUSH 10ML SYR IVF SCH (20:55)
[2020-04-12] MEDS: FLUDROCORTISONE 0.1 MG TABLET PO SCH (20:55)
[2020-04-12] MEDS: INSULIN GLARGINE 100 UNITS/ML, PEN SQ-INSULIN SCH (21:04)
[2020-04-13] VITALS (7 sets, daily range): BP systolic 114–162; BP diastolic 62–85
[2020-04-13] MEDS: HEPARIN 5,000 UNITS/ML, 1ML SQ SCH ×3 (04:54→21:20)
[2020-04-13] MEDS: ASPIRIN 325 MG TABLET EC PO SCH (04:54)
[2020-04-13] MEDS: GABAPENTIN 300 MG CAPSULE PO SCH ×4 (04:55→21:19)
[2020-04-13] MEDS: LEVOTHYROXINE 137 MCG TABLET PO SCH (04:55)
[2020-04-13 09:06] LABS: ALANINE AMINOTRANSFERASE 34 U/L (12-78); ALBUMIN 3.6 g/dL (3.4-5.0); ANION GAP 12 mmol/L (5-15); CALCIUM 8.9 mg/dL (8.5-10.1); CHLORIDE 104 mmol/L (98-107); CREATININE 1.04 mg/dL (0.55-1.02)
[2020-04-13 09:14] LABS: ALKALINE PHOSPHATASE 79 U/L (45-117); BILIRUBIN,TOTAL 0.2 mg/dL (0.2-1.0); TOTAL PROTEIN 7.1 g/dL (6.4-8.2)
[2020-04-13] MEDS: INSULIN LISPRO 100 UNITS/ML, PEN SQ-INSULIN SCH ×4 (09:18→21:32)
[2020-04-13] MEDS: ALLOPURINOL 300 MG TABLET PO SCH (09:18)
[2020-04-13] MEDS: CALCIUM CARBONATE 500 MG TABLET PO SCH (09:18)
[2020-04-13] MEDS: ACETAMINOPHEN 325 MG TABLET PO PRN ×2 (09:19→21:19)
[2020-04-13] MEDS: FLUDROCORTISONE 0.1 MG TABLET PO SCH (09:19)
[2020-04-13] MEDS: FERROUS SULFATE 325 MG TABLET PO SCH (09:19)
[2020-04-13] MEDS: DULOXETINE 30 MG CAPSULE.DR PO SCH (09:19)
[2020-04-13] MEDS: SODIUM CHLORIDE FLUSH 10ML SYR IVF SCH ×2 (09:19→21:20)
[2020-04-13] MEDS: PANCRELIPASE 5000 CAPSULE.DR PO SCH ×4 (09:21→21:18)
[2020-04-13 09:26] LABS: BASOPHILS # (AUTO) 0.01 x10^3/uL (0-0.1); BASOPHILS % (AUTO) 0 % (0-1); EOSINOPHILS % (AUTO) 0 % (1-7); LYMPHOCYTES # (AUTO) 1.94 x10^3/uL (1-3.4); LYMPHOCYTES % (AUTO) 13 % (22-44); MD SCAN; MEAN CORPUSCULAR HEMOGLOBIN 29.3 pg (27.0-34.8); MEAN CORPUSCULAR HGB CONC 33.9 g/dL (32.4-35.8); MEAN CORPUSCULAR VOLUME 86.7 fL (80-100); MEAN PLATELET VOLUME 9.4 fL (7.4-10.4); MONOCYTES # (AUTO) 0.58 x10^3/uL (0.2-0.8); MONOCYTES % (AUTO) 4 % (2-9); NEUTROPHILS # (AUTO) 12.33 x10^3/uL (1.8-6.8); NEUTROPHILS % (AUTO) 83 % (42-75); PLATELET COUNT 357 x10^3/uL (130-400); RED BLOOD COUNT 4.64 x10^6/uL (3.82-5.3); RED CELL DISTRIBUTION WIDTH 13.3 % (9.6-15.2)
[2020-04-13] MEDS ORDERED: METH750T87 PO (11:44)
[2020-04-13] MEDS ORDERED: TIZA4TAB2 PO (11:47)
[2020-04-13] MEDS: SODIUM CHLORIDE 0.9% 1,000 ML IV SCH ×5 (12:00→19:23)
[2020-04-13] MEDS ORDERED: SODIUM CHLORIDE 0.9% 1,000 ML IV SCH ×2 (12:38)
[2020-04-13] MEDS: LEVOFLOXACIN/PMX 500MG/100ML 100 ML IV SCH (13:05)
[2020-04-13] MEDS ORDERED: PHENAZOPYRIDINE 100 MG TABLET PO PRN (15:30)
[2020-04-13] MEDS: HYDROCORTISONE 100 MG INJ. IVPush SCH ×2 (15:55→23:48)
[2020-04-13] MEDS: METHOCARBAMOL 500 MG TABLET PO SCH (15:56)
[2020-04-13] MEDS ORDERED: LIDOCAINE-MPF 1%, 5ML ONE (17:42)
[2020-04-13] MEDS ORDERED: BIVALIRUDIN 250 MG ONE (17:42)
[2020-04-13] MEDS ORDERED: HEPARIN 1,000 UNITS/ML, 10ML ONE (17:42)
[2020-04-13] MEDS ORDERED: MIDAZOLAM 1 MG/ML, 5ML ONE (17:42)
[2020-04-13] MEDS ORDERED: VERAPAMIL 2.5 MG/ML, 2ML ONE (17:42)
[2020-04-13] MEDS ORDERED: FENTANYL PF 100 MCG/2ML ONE (17:42)
[2020-04-13] MEDS ORDERED: TIZANIDINE 4MG TABLET PO SCH (21:00)
[2020-04-13] MEDS: FENOFIBRATE 145 MG TABLET PO SCH (21:19)
[2020-04-13] MEDS: hydrOXyzine 50MG TABLET PO SCH (21:19)
[2020-04-13] MEDS: ATORVASTATIN 40 MG TABLET PO SCH (21:19)
[2020-04-13] MEDS: INSULIN GLARGINE 100 UNITS/ML, PEN SQ-INSULIN SCH (21:32)
[2020-04-14 04:07] VITALS: BP 96/65
[2020-04-14] MEDS: SODIUM CHLORIDE 0.9% 1,000 ML IV SCH ×3 (04:21→12:00)
[2020-04-14] MEDS: HEPARIN 5,000 UNITS/ML, 1ML SQ SCH ×2 (04:27→13:00)
[2020-04-14] MEDS: LEVOTHYROXINE 137 MCG TABLET PO SCH (04:30)
[2020-04-14] MEDS: ASPIRIN 325 MG TABLET EC PO SCH (04:30)
[2020-04-14] MEDS: GABAPENTIN 300 MG CAPSULE PO SCH ×2 (05:15→12:05)
[2020-04-14 06:22] LABS: MEAN CORPUSCULAR HEMOGLOBIN 28.8 pg (27.0-34.8); MEAN CORPUSCULAR HGB CONC 32.9 g/dL (32.4-35.8); MEAN CORPUSCULAR VOLUME 87.4 fL (80-100); PLATELET COUNT 302 x10^3/uL (130-400); RED BLOOD COUNT 4.18 x10^6/uL (3.82-5.3); RED CELL DISTRIBUTION WIDTH 13.1 % (9.6-15.2)
[2020-04-14 06:23] LABS: ALBUMIN 3.2 g/dL (3.4-5.0); ANION GAP 10 mmol/L (5-15); CALCIUM 8.8 mg/dL (8.5-10.1); CHLORIDE 106 mmol/L (98-107)
[2020-04-14 06:27] LABS: ALANINE AMINOTRANSFERASE 27 U/L (12-78); ALKALINE PHOSPHATASE 60 U/L (45-117); BILIRUBIN,TOTAL 0.2 mg/dL (0.2-1.0); CREATININE 0.79 mg/dL (0.55-1.02); TOTAL PROTEIN 6.3 g/dL (6.4-8.2)
[2020-04-14 06:36] VITALS: BP 108/55
[2020-04-14 06:39] LABS: BASOPHILS # (AUTO) 0.02 x10^3/uL (0-0.1); BASOPHILS % (AUTO) 0 % (0-1); EOSINOPHILS # (AUTO) 0.02 x10^3/uL (0-0.4); EOSINOPHILS % (AUTO) 0 % (1-7); LYMPHOCYTES # (AUTO) 1.85 x10^3/uL (1-3.4); LYMPHOCYTES % (AUTO) 20 % (22-44); MD SCAN; MONOCYTES # (AUTO) 0.08 x10^3/uL (0.2-0.8); MONOCYTES % (AUTO) 1 % (2-9); NEUTROPHILS # (AUTO) 7.48 x10^3/uL (1.8-6.8); NEUTROPHILS % (AUTO) 79 % (42-75)
[2020-04-14] MEDS: METHOCARBAMOL 500 MG TABLET PO SCH ×2 (08:00→12:07)
[2020-04-14] MEDS: INSULIN LISPRO 100 UNITS/ML, PEN SQ-INSULIN SCH ×2 (08:30→12:05)
[2020-04-14] MEDS: HYDROCORTISONE 100 MG INJ. IVPush SCH (08:30)
[2020-04-14] MEDS: PANCRELIPASE 5000 CAPSULE.DR PO SCH ×2 (08:32→12:05)
[2020-04-14] MEDS: FERROUS SULFATE 325 MG TABLET PO SCH (08:32)
[2020-04-14] MEDS: DULOXETINE 30 MG CAPSULE.DR PO SCH (08:32)
[2020-04-14] MEDS: SODIUM CHLORIDE FLUSH 10ML SYR IVF SCH (08:32)
[2020-04-14] MEDS: ALLOPURINOL 300 MG TABLET PO SCH (08:33)
[2020-04-14 08:39] VITALS: BP 102/64
[2020-04-14 08:42] VITALS: BP 95/57
[2020-04-14 08:45] VITALS: BP 103/59
[2020-04-14] MEDS ORDERED: LEVO750T26 PO (10:41)
[2020-04-14] MEDS ORDERED: SODIUM CHLORIDE 0.9% 1,000 ML IV SCH (12:38)
[2020-04-14 13:38] VITALS: BP 152/71
[2020-04-14] MEDS: LEVOFLOXACIN/PMX 500MG/100ML 100 ML IV SCH (13:48)
== END 2020-04-14 16:10 | disposition home or self-care (01) | DRG 192 ==
LOC: ED 05:37 → EDIP 08:56 → 5SO 09:48 → DCLOUNGE 04-14 15:55
PROVIDERS: ADMIT Internal Medicine Infectious Disease; ATTEND Internal Medicine
PROC: 0T9B70Z Drainage of Bladder with Drainage Device, Via Natural or Artificial Opening (ICD-10-PCS; 2020-04-12)
PROC: 4A023N7 Measurement of Cardiac Sampling and Pressure, Left Heart, Percutaneous Approach (ICD-10-PCS; principal; 2020-04-13)
PROC: B211YZZ Fluoroscopy of Multiple Coronary Arteries using Other Contrast (ICD-10-PCS; 2020-04-13)
PROC: B215YZZ Fluoroscopy of Left Heart using Other Contrast (ICD-10-PCS; 2020-04-13)
DX: R07.9 Chest pain, unspecified (principal); N17.0 Acute kidney failure with tubular necrosis; E10.65 Type 1 diabetes mellitus with hyperglycemia; E27.40 Unspecified adrenocortical insufficiency; M32.9 Systemic lupus erythematosus, unspecified; E83.51 Hypocalcemia; N39.0 Urinary tract infection, site not specified; E03.9 Hypothyroidism, unspecified; J44.9 Chronic obstructive pulmonary disease, unspecified; M79.7 Fibromyalgia; E78.5 Hyperlipidemia, unspecified; K50.90 Crohn's disease, unspecified, without complications; I10 Essential (primary) hypertension; E86.0 Dehydration; E78.1 Pure hyperglyceridemia; M48.02 Spinal stenosis, cervical region; Z90.89 Acquired absence of other organs; Z90.710 Acquired absence of both cervix and uterus; Z88.5 Allergy status to narcotic agent; Z88.0 Allergy status to penicillin; Z88.2 Allergy status to sulfonamides; Z88.1 Allergy status to other antibiotic agents; Z88.7 Allergy status to serum and vaccine; Z88.8 Allergy status to other drugs, medicaments and biological substances; Z91.040 Latex allergy status; Z79.4 Long term (current) use of insulin; Z79.83 Long term (current) use of bisphosphonates; Z79.899 Other long term (current) drug therapy; Z85.3 Personal history of malignant neoplasm of breast; Z90.10 Acquired absence of unspecified breast and nipple
CPT/HCPCS: 36415; 70450; 71045; 76705; 80053; 80061; 81001; 82010; 82330; 82533; 82803; 82962; 83036; 83605; 83735; 84145; 84439; 84443; 84484; 85025; 87040; 87077; 87086; 87186; 93005; 93306; 93458; 93880; 96374; 96375; 99156; 99285; C1769; C1894; G0378; J0583; J0610; J1100; J1644; J1956; J2250; J3010; J1720; J1815; J7030; J7120; Q9967

== ENCOUNTER → 2020-12-25 | Outpatient (CLI) | payer MEDICAID ==
[~2020-12-25] MED LIST changes: -CLIN300C8 PO; +CLIN300C9 PO; +FEXO1TAB29 PO; +GEMF-31 PO; -GEMF600T8 PO; -HYDR-3245 PO; +HYDR1TAB53 PO; +LEVO750T26 PO; +METH-640 PO; -METH750T2 PO; +METH750T87 PO; -MONT10TA11 PO; +MONT10TA17 PO; +OMNIPAQUE 350 MG/ML, 100ML BOTTLE ONE
== END | disposition home or self-care (01) ==
LOC: CFH 09:00
PROVIDERS: ATTEND Internal Medicine Gastroenterology
DX: R10.9 Unspecified abdominal pain (principal); R63.4 Abnormal weight loss
CPT/HCPCS: 74177; 82565; Q9967

== ENCOUNTER 2021-01-15 20:10 | Emergency (ER) | payer MEDICAID ==
[~2021-01-15] VITALS: Ht 162.6 cm; Wt 68.7 kg
[~2021-01-15 20:10] MED LIST changes: -OMNIPAQUE 350 MG/ML, 100ML BOTTLE ONE
[2021-01-15] MEDS ORDERED: ONDANSETRON ODT 4 MG ONE (20:18)
--- NOTE | 2021-01-15 20:20 | NUR ---
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
[2021-01-15] MEDS ORDERED: SODIUM CHLORIDE FLUSH 10ML SYR IVF ONE (20:30)
[2021-01-15] MEDS ORDERED: SODIUM CHLORIDE 0.9% 1,000ML IVBOLUS ONE (20:30)
[2021-01-15] MEDS ORDERED: ONDANSETRON 2MG/ML, 2ML IVPush ONE ×2 (20:30→21:30)
[2021-01-15] MEDS ORDERED: ONDANSETRON ODT 4 MG PO ONE (20:30)
[2021-01-15 21:24] LABS: BASOPHILS % (AUTO) 1 % (0-1); EOSINOPHILS % (AUTO) 4 % (1-7); LYMPHOCYTES % (AUTO) 38 % (22-44); MEAN CORPUSCULAR HEMOGLOBIN 29.2 pg (27.0-34.8); MEAN CORPUSCULAR HGB CONC 35.4 g/dL (32.4-35.8); MEAN PLATELET VOLUME 9.3 fL (7.4-10.4); MONOCYTES % (AUTO) 5 % (2-9); NEUTROPHILS % (AUTO) 52 % (42-75); PLATELET COUNT 408 x10^3/uL (130-400); RED BLOOD COUNT 5.09 x10^6/uL (3.82-5.3); RED CELL DISTRIBUTION WIDTH 14.3 % (9.6-15.2)
[2021-01-15 21:26] LABS: MD NO
[2021-01-15] MEDS ORDERED: MAALOX/HYOSCYAMINE/LIDOCAINE 45 ML BTL ONE (21:26)
[2021-01-15] MEDS ORDERED: ONDANSETRON 2MG/ML, 2ML ONE (21:26)
[2021-01-15] MEDS ORDERED: MAALOX/HYOSCYAMINE/LIDOCAINE 45 ML BTL PO ONE (21:30)
[2021-01-15 21:34] LABS: ALANINE AMINOTRANSFERASE 29 U/L (12-78); ANION GAP 11 mmol/L (5-15); CALCIUM 8.6 mg/dL (8.5-10.1); CHLORIDE 111 mmol/L (98-107); CREATININE 0.82 mg/dL (0.55-1.02)
[2021-01-15 21:37] LABS: ALKALINE PHOSPHATASE 105 U/L (45-117); BILIRUBIN,TOTAL 0.3 mg/dL (0.2-1.0)
--- NOTE | 2021-01-15 21:44 | NUR ---
Pt to ER with N/V/D that started 3 hrs ago. Pt to US from triage, then to room. Pt placed on monitor, EKG done, IV palced. Pt medicated per order. Warm blanket given. Pt denies CP or SOB. Pt c/o headache. Pt A&O. Will monitor.
--- NOTE | 2021-01-15 22:03 | NUR ---
Pt appears and states she feels much better. Pt calm in room. Ambulated to BR without difficulty. Urine sent.
[2021-01-15 22:15] LABS: MICROSCOPIC AUTO
--- NOTE | 2021-01-15 23:37 | NUR ---
Pt continues to feel better. Water given, tolerated well. Crackers and apple juice given later, and also tolerated. Pt With no complaints at this time.
[2021-01-16 00:14] VITALS: BP 162/88
--- NOTE | 2021-01-16 00:15 | NUR ---
Patient/Caregiver given discharge instructions and they have confirmed that they understand the instructions. Patient ambulatory with steady gait. Pt states feeling better with no nausea or vomiting. Pt with no abd pain. Pt with stable VS. RX reviewed with patient and pt states she understands.
== END 2021-01-16 00:17 | disposition home or self-care (01) ==
LOC: ED 21:54
DX: K29.00 Acute gastritis without bleeding (principal); R10.13 Epigastric pain; R00.0 Tachycardia, unspecified; R11.2 Nausea with vomiting, unspecified; I10 Essential (primary) hypertension; E11.9 Type 2 diabetes mellitus without complications; E78.5 Hyperlipidemia, unspecified; J44.9 Chronic obstructive pulmonary disease, unspecified
CPT/HCPCS: 36415; 76700; 80053; 81001; 83690; 85025; 87077; 87086; 87186; 93005; 96361; 96374; 99285; J2405; J7030; Q0162

== ENCOUNTER 2021-03-09 11:31 | Emergency (ER) | payer MEDICAID ==
[~2021-03-09] VITALS: Ht 162.6 cm; Wt 79.0 kg
[2021-03-09] MEDS ORDERED: HYDROmorphone 1 MG/ML, 1ML INJ SQ STA (12:17)
[2021-03-09] MEDS ORDERED: HYDROmorphone 1 MG/ML, 1ML INJ ONE (12:20)
[2021-03-09 12:26] VITALS: BP 121/48
== END 2021-03-09 14:18 | disposition home or self-care (01) ==
LOC: ED 13:55
DX: S42.254A Nondisplaced fracture of greater tuberosity of right humerus, initial encounter for closed fracture (principal); S63.521A Sprain of radiocarpal joint of right wrist, initial encounter; S63.522A Sprain of radiocarpal joint of left wrist, initial encounter; S16.1XXA Strain of muscle, fascia and tendon at neck level, initial encounter; I11.9 Hypertensive heart disease without heart failure; E11.9 Type 2 diabetes mellitus without complications; J44.9 Chronic obstructive pulmonary disease, unspecified; E78.5 Hyperlipidemia, unspecified; K50.90 Crohn's disease, unspecified, without complications; W18.30XA Fall on same level, unspecified, initial encounter; Y93.89 Activity, other specified; Y92.009 Unspecified place in unspecified non-institutional (private) residence as the place of occurrence of the external cause; Y99.8 Other external cause status
CPT/HCPCS: 29105; 73030; 73110; 73200; 73564; 96372; 99284; J1170; 96374